=== PATIENT | female | born 1925 | race Caucasian/White ===

== ENCOUNTER 2017-01-27 06:22 | Inpatient (IN) | payer MEDICARE, BC ==
[~2017-01-27] VITALS: Ht 165.1 cm; Wt 70.8 kg
[~2017-01-27 06:22] MED LIST: ACET-73 PO; ASPI81TA31 PO; BIMA2.5D5 EACHEYE; BRIM5DRO2 EACHEYE; CALC-1116 PO; CITA20TA11 PO; CYAN250014 PO; DONE10TA44 PO; HYDR12.517 PO; LOPE-156 PO; MUPI22OI2 NS; POLY510P31 PO; SENN-167 PO; Tramadol Hcl PO; VALS1TAB2 PO; Valsartan PO
[2017-01-27] MEDS ORDERED: CYAN10009 PO (06:37)
[2017-01-27] MEDS ORDERED: AMIN30LI2 PO (06:37)
[2017-01-27] MEDS ORDERED: TIMO5SOL11 EACHEYE (06:37)
[2017-01-27] MEDS ORDERED: LATA2.5D7 EACHEYE (06:37)
[2017-01-27] MEDS ORDERED: CALC-25 PO (06:37)
[2017-01-27] MEDS ORDERED: CEFAZOLIN 1 G VIAL IM ONE (07:15)
[2017-01-27] MEDS ORDERED: TDAP DIPH,PERTUSS,TET VAC/PF 0.5 ML DISP.SYRIN IM ONE ×2 (07:15→07:29)
[2017-01-27] MEDS ORDERED: LIDOCAINE HCL 1% 20 ML VIAL IJ ONE (07:15)
[2017-01-27] MEDS ORDERED: CEFAZOLIN 1 G VIAL ONE (07:29)
[2017-01-27] MEDS ORDERED: LIDOCAINE HCL 1% 20 ML VIAL ONE (07:29)
[2017-01-27 08:34] LABS: BASOPHILS % (AUTO) 0.5 % (0.0-2.0); EOSINOPHILS # (AUTO) 0.5 K/uL (0.0-0.7); EOSINOPHILS % (AUTO) 5.4 % (0.0-7.0); HEMATOCRIT 37.2 % (37-47); HEMOGLOBIN 12.4 G/DL (12.0-16.0); LYMPHOCYTES % (AUTO) 10.3 % (20.5-51.5); MEAN CORPUSCULAR HEMOGLOBIN 31.9 UUG (27.0-31.0); MEAN CORPUSCULAR HGB CONC 34 g/dL (32.0-37.0); MEAN CORPUSCULAR VOLUME 95.3 FL (81.0-99.0); MONOCYTES # (AUTO) 0.6 K/UL (0.1-1.30); MONOCYTES % (AUTO) 6.5 % (0.0-11.0); NEUTROPHILS # (AUTO) 7.2 K/UL (1.8-8.9); NEUTROPHILS % (AUTO) 77.3 % (38.5-71.5); PLATELET COUNT (AUTO) 255 K/UL (150-450); WHITE BLOOD COUNT (AUTO) 9.3 K/UL (4.0-11.2)
[2017-01-27 08:50] LABS: CARBON DIOXIDE 27 mmol/L (21-32); CHLORIDE 105 mmol/L (98-107); GLUCOSE 110 mg/dL (74-106); POTASSIUM 3.4 mmol/L (3.5-5.1); UREA NITROGEN, BLOOD 21 mg/dL (7-18)
[2017-01-27 08:55] LABS: ALANINE AMINOTRANSFERASE 12 U/L (14-59); ALKALINE PHOSPHATASE 67 U/L (50-136); ASPARTATE AMINOTRANSFERASE 17 U/L (15-37); BILIRUBIN,DIRECT 0.1 mg/dL (0.0-0.2); BILIRUBIN,TOTAL 0.4 mg/dL (0.2-1.0); TOTAL PROTEIN, SERUM 7.3 g/dL (6.4-8.2)
--- NOTE | 2017-01-27 09:00 | NUR ---
PER MD ORDER, NO NEED TO CALL CODE SEPSIS. EVEN THOUGH LACTIC ACID IS ELEVATED.
[2017-01-27] MEDS ORDERED: LEVOFLOXACIN 500 MG/D5W 100ML PIGGYBACK IV ONE (09:15)
[2017-01-27] MEDS ORDERED: PIPERACILLIN SODIUM/TAZOBACTAM 3.375 G in IV DEXTROSE 5% 50 ML IV ONE (09:15)
[2017-01-27] MEDS ORDERED: IV NORMAL SALINE 1000 ML BAG IV ONE (09:15)
[2017-01-27] MEDS ORDERED: ENOXAPARIN SODIUM 80 MG/0.8 ML DISP.SYRIN SQ ONE ×2 (09:15→09:43)
[2017-01-27] MEDS ORDERED: LEVOFLOXACIN 500 MG/D5W 100 ML ONE (09:37)
[2017-01-27] MEDS ORDERED: PIPERACILLIN/TAZOBACTAM/D5W 50 ML IV ONE (09:37)
--- NOTE | 2017-01-27 09:59 | NUR ---
[facility]SA COLLECTED AND SENT TO LAB, BELONGING LIST COMPLETED.
--- NOTE | 2017-01-27 10:19 | NUR ---
PAGED VIP GROUP FOR 2ND TIME AWAITING CALL BACK.
[2017-01-27 11:00] VITALS: BP 115/57
--- NOTE | 2017-01-27 11:10 | NUR ---
ADMIT PT.FROM ER,PT.CONFUSED,WITH EPISODES OF AGITATION.
--- NOTE | 2017-01-27 11:15 | NUR ---
WAS PAGED FOR ADMITTING ORDERS.
--- NOTE | 2017-01-27 12:30 | NUR ---
PT.PULL IV OUT WAS BLEEDING FROM INSERTION SIDE,WAS CONSTANTLY GETTING OUT OFF BED,SITTER FOR PT.SAFETY PLACED.
--- NOTE | 2017-01-27 12:45 | NUR ---
PT.WAS SEEN BY WITH ADMITING ORDERS.
[2017-01-27] MEDS: IV 1/2NS 1000 ML 1,000 ML IV PRN (12:54)
[2017-01-27] MEDS ORDERED: CEFAZOLIN 1 G in PREMIXED 1 EACH IV SCH (14:00)
[2017-01-27] MEDS ORDERED: HYDR12.519 PO (14:54)
[2017-01-27] MEDS ORDERED: TRAM50TA2 PO (14:54)
[2017-01-27] MEDS ORDERED: VALS80TA2 GT (14:54)
--- NOTE | 2017-01-27 15:02 | NUR ---
MED.RECON.WAS NOT DONE WAS PAGED AGAIN.
[2017-01-27] MEDS ORDERED: Z GUARD REMEDY PASTE 57 GM TUBE TOP PRN (15:15)
[2017-01-27] MEDS: CEFAZOLIN 1 G in PREMIXED 1 EACH IV SCH ×2 (15:30→23:57)
[2017-01-27 16:00] VITALS: BP 113/51
--- NOTE | 2017-01-27 18:45 | NUR ---
NO CHANGES IN PT.CONDITION NO S/S OF ACUTE DISTRESS OR PAIN NOTED.SITTER 1:1 AT BEDSIDE
--- NOTE | 2017-01-27 19:20 | NUR ---
nsg: pt received in bed, awake but confused. no acute distress noted. denies discomfort. tele, SR with pvc's. lungs sound clear to auscultate. has bilateral lower ext edema. sitter at the bedside for safety. cont to monitor.
[2017-01-27] MEDS ORDERED: TIMO5DRO18 EACHEYE (19:33)
[2017-01-27] MEDS ORDERED: CYAN-10 IJ (19:41)
[2017-01-27] MEDS ORDERED: LOPERAMIDE HCL 2 MG CAPSULE PO PRN (19:45)
[2017-01-27] MEDS ORDERED: ACETAMINOPHEN ES 500 MG TABLET PO PRN (19:45)
[2017-01-27] MEDS ORDERED: SENNOSIDES 1 TABLET PO PRN (19:45)
[2017-01-27] MEDS ORDERED: POLYETHYLENE GLYCOL 3350 238 GM POWDER PO PRN (19:45)
[2017-01-27] MEDS ORDERED: CALC-555 PO (19:51)
[2017-01-27] MEDS ORDERED: MIRALAX 17 GM POWD.PACK PO PRN (20:00)
[2017-01-27] MEDS ORDERED: BRIM10DR6 EACHEYE (20:01)
[2017-01-27 20:03] VITALS: BP 134/60
[2017-01-27] MEDS: CALCIUM CARB/VITAMIN D 500MG-200UNITS TABLET PO SCH ×2 (21:00→21:11)
[2017-01-27] MEDS: LATANOPROST OPHT DROP 2.5 ML BOTTLE EACHEYE SCH (21:11)
[2017-01-27] MEDS: Z GUARD REMEDY PASTE 57 GM TUBE TOP SCH (21:12)
[2017-01-27] MEDS: ENOXAPARIN SODIUM 80 MG/0.8 ML DISP.SYRIN SQ SCH (21:12)
[2017-01-27 23:52] VITALS: BP 145/71
[2017-01-28 03:43] VITALS: BP 137/73
[2017-01-28] MEDS: IV 1/2NS 1000 ML 1,000 ML IV PRN ×2 (03:50→03:54)
--- NOTE | 2017-01-28 04:42 | NUR ---
nsg: pt has not slept. however, denies any discomfort.
--- NOTE | 2017-01-28 05:37 | NUR ---
nsg: all needs attended. kept clean and dry. tele, sr. cont to monitor.
[2017-01-28 06:45] LABS: BASOPHILS % (AUTO) 0.4 % (0.0-2.0); EOSINOPHILS # (AUTO) 0.4 K/uL (0.0-0.7); EOSINOPHILS % (AUTO) 4.8 % (0.0-7.0); HEMATOCRIT 37.5 % (37-47); HEMOGLOBIN 12.6 G/DL (12.0-16.0); LYMPHOCYTES # (AUTO) 1.4 K/UL (0.8-4.8); LYMPHOCYTES % (AUTO) 15.7 % (20.5-51.5); MEAN CORPUSCULAR HEMOGLOBIN 32.2 UUG (27.0-31.0); MEAN CORPUSCULAR HGB CONC 34 g/dL (32.0-37.0); MEAN CORPUSCULAR VOLUME 95.4 FL (81.0-99.0); MONOCYTES # (AUTO) 0.6 K/UL (0.1-1.30); NEUTROPHILS # (AUTO) 6.4 K/UL (1.8-8.9); NEUTROPHILS % (AUTO) 72.1 % (38.5-71.5); PLATELET COUNT (AUTO) 260 K/UL (150-450); RED BLOOD CELL COUNT(AUTO) 3.93 MIL/UL (4.2-5.4); WHITE BLOOD COUNT (AUTO) 8.8 K/UL (4.0-11.2)
[2017-01-28 07:12] LABS: ALANINE AMINOTRANSFERASE 11 U/L (14-59); ALKALINE PHOSPHATASE 60 U/L (50-136); ASPARTATE AMINOTRANSFERASE 20 U/L (15-37); BILIRUBIN,TOTAL 0.6 mg/dL (0.2-1.0); CARBON DIOXIDE 23 mmol/L (21-32); CHLORIDE 103 mmol/L (98-107); CREATININE 0.9 mg/dL (0.6-1.3); GLUCOSE 105 mg/dL (74-106); MAGNESIUM 1.5 mg/dL (1.8-2.4); PHOSPHOROUS 2.5 mg/dL (2.5-4.9); POTASSIUM 3.2 mmol/L (3.5-5.1); TOTAL PROTEIN, SERUM 6.7 g/dL (6.4-8.2); UREA NITROGEN, BLOOD 9 mg/dL (7-18)
[2017-01-28] MEDS: CEFAZOLIN 1 G in PREMIXED 1 EACH IV SCH ×2 (07:53→16:12)
[2017-01-28] MEDS: DONEPEZIL 10 MG TABLET PO SCH (07:54)
[2017-01-28] MEDS: HYDROCHLOROTHIAZIDE 12.5 MG CAPSULE PO SCH (07:54)
[2017-01-28] MEDS: CYANOCOBALAMIN 1,000 MCG TABLET PO SCH (07:54)
[2017-01-28] MEDS: CALCIUM CARB/VITAMIN D 500MG-200UNITS TABLET PO SCH ×2 (07:54→21:14)
[2017-01-28] MEDS: CITALOPRAM 20 MG TABLET PO SCH (07:54)
[2017-01-28] MEDS: VALSARTAN 80 MG TABLET PO SCH (07:54)
[2017-01-28] MEDS: ENOXAPARIN SODIUM 80 MG/0.8 ML DISP.SYRIN SQ SCH ×2 (07:57→21:16)
[2017-01-28] MEDS: TIMOLOL MALEATE 0.5% OPHT DROP 5 ML BOTTLE EACHEYE SCH ×2 (07:57→16:12)
[2017-01-28] MEDS: BRIMONIDINE 0.2% OPHT DROP 10 ML BOTTLE EACHEYE SCH ×2 (07:57→16:12)
[2017-01-28] MEDS: PROTEIN SUPPLEMENT (PROSTAT) 30 ML LIQUID PO SCH (07:58)
[2017-01-28] MEDS: Z GUARD REMEDY PASTE 57 GM TUBE TOP SCH ×2 (07:58→21:15)
[2017-01-28] MEDS ORDERED: ASPIRIN 81 MG TAB.CHEW PO SCH (09:00)
[2017-01-28] MEDS ORDERED: HOME MED MISCELLANEOUS PO SCH (09:00)
[2017-01-28] MEDS ORDERED: HOME MED MISCELLANEOUS EACHEYE SCH (09:00)
[2017-01-28] MEDS ORDERED: POTASSIUM CHLORIDE 20 MEQ TAB.PRT.SR PO ONE (09:15)
[2017-01-28] MEDS ORDERED: MAGNESIUM OXIDE 400 MG TABLET PO ONE (09:15)
[2017-01-28 11:31] VITALS: BP 168/85
[2017-01-28] MEDS: MAGNESIUM SULFATE/D5W 100 ML IV SCH ×2 (14:46→15:57)
[2017-01-28 15:32] VITALS: BP 170/78
[2017-01-28] MEDS ORDERED: BIMATOPROST 0.01% OPHT DROP 2.5 ML BOTTLE EACHEYE SCH (18:00)
--- NOTE | 2017-01-28 19:20 | NUR ---
Bedside reporting with GRADY Lopez. Patient on bed, wide awake. Sitter at bedside for safety. Pt denies any pain or discomforts at this time. Continue care as planned.
[2017-01-28 20:00] VITALS: BP 162/82
[2017-01-28] MEDS: TRAMADOL HCL 50 MG TABLET PO PRN (21:18)
[2017-01-28] MEDS: LATANOPROST OPHT DROP 2.5 ML BOTTLE EACHEYE SCH (21:25)
[2017-01-29] VITALS: BP 169/84
[2017-01-29 04:00] VITALS: BP 144/92
--- NOTE | 2017-01-29 05:41 | NUR ---
Restless, and somewhat agitated, medicated for pain with relief. Slept soundly. Sitter at bedside for safety. All needs attended and met. Continue care as planned.
[2017-01-29 06:42] LABS: CARBON DIOXIDE 25 mmol/L (21-32); CHLORIDE 96 mmol/L (98-107); CREATININE 0.8 mg/dL (0.6-1.3); GLUCOSE 123 mg/dL (74-106); POTASSIUM 3.3 mmol/L (3.5-5.1); UREA NITROGEN, BLOOD 6 mg/dL (7-18)
--- NOTE | 2017-01-29 07:03 | NUR ---
Bedside reporting with GRADY Lopez
[2017-01-29] MEDS: CEFAZOLIN 1 G in PREMIXED 1 EACH IV SCH ×5 (08:03→23:39)
[2017-01-29] MEDS: BRIMONIDINE 0.2% OPHT DROP 10 ML BOTTLE EACHEYE SCH ×2 (08:04→16:08)
[2017-01-29] MEDS: TIMOLOL MALEATE 0.5% OPHT DROP 5 ML BOTTLE EACHEYE SCH ×2 (08:04→16:08)
[2017-01-29] MEDS: PROTEIN SUPPLEMENT (PROSTAT) 30 ML LIQUID PO SCH (08:04)
[2017-01-29] MEDS: CITALOPRAM 20 MG TABLET PO SCH (08:06)
[2017-01-29] MEDS: CYANOCOBALAMIN 1,000 MCG TABLET PO SCH (08:06)
[2017-01-29] MEDS: CALCIUM CARB/VITAMIN D 500MG-200UNITS TABLET PO SCH ×2 (08:06→21:03)
[2017-01-29] MEDS: HYDROCHLOROTHIAZIDE 12.5 MG CAPSULE PO SCH (08:06)
[2017-01-29] MEDS: DONEPEZIL 10 MG TABLET PO SCH (08:06)
[2017-01-29] MEDS: Z GUARD REMEDY PASTE 57 GM TUBE TOP SCH ×2 (08:07→21:03)
[2017-01-29] MEDS: ENOXAPARIN SODIUM 80 MG/0.8 ML DISP.SYRIN SQ SCH ×2 (08:10→21:04)
[2017-01-29] MEDS: VALSARTAN 80 MG TABLET PO SCH (08:14)
[2017-01-29] MEDS: POTASSIUM CHLORIDE 50 ML IV SCH ×2 (10:10→11:35)
[2017-01-29] MEDS: AMLODIPINE 5 MG TABLET PO SCH (10:10)
[2017-01-29 12:33] VITALS: BP 153/83
[2017-01-29 15:29] VITALS: BP 148/76
[2017-01-29] MEDS ORDERED: WARFARIN SODIUM 4 MG TABLET PO SCH (17:00)
[2017-01-29 20:00] VITALS: BP 157/87
--- NOTE | 2017-01-29 20:00 | NUR ---
RECEIVED PATIENT AWAKE IN BED. ALERT TO SELF. PLEASANT WHEN APPROACHED. SITTER AT BEDSIDE. NO RESP. DISTRESS NOTED. BED ALARM ON. CALL LIGHT IN REACH. ALL NEEDS ATTENDED. WILL CONTINUE TO MONITOR .
[2017-01-29] MEDS: LATANOPROST OPHT DROP 2.5 ML BOTTLE EACHEYE SCH (21:03)
[2017-01-29] MEDS: NEOMY/BACITRAC/POLYMI OINT 28.35 GM TUBE TOP SCH (21:04)
[2017-01-29] MEDS: TRAMADOL HCL 50 MG TABLET PO PRN (21:05)
[2017-01-30 06:00] VITALS: BP 100/57
--- NOTE | 2017-01-30 06:25 | NUR ---
PATIENT ASLEEP IN BED. EASILY AROUSABLE. SLEPT WELL THROUGHOUT THE NIGHT. VSS. SITTER AT BEDSIDE FOR SAFETY. CALL LIGHT IN REACH. ALL NEEDS ATTENDED. WILL CONTINUE TO MONITOR .
[2017-01-30 07:48] LABS: CARBON DIOXIDE 26 mmol/L (21-32); CHLORIDE 97 mmol/L (98-107); CREATININE 0.8 mg/dL (0.6-1.3); GLUCOSE 94 mg/dL (74-106); PHOSPHOROUS 3.7 mg/dL (2.5-4.9); POTASSIUM 3.4 mmol/L (3.5-5.1); UREA NITROGEN, BLOOD 11 mg/dL (7-18); URIC ACID 3.6 mg/dL (2.6-6.0)
[2017-01-30 08:09] LABS: THYROID STIMULATING HORMONE 1.493 mIU/mL (0.358-3.740)
--- NOTE | 2017-01-30 08:30 | NUR ---
AWAKE FORGETFUL CONFUSED BUT COOPERATE AND ABLE TO FOLLOW SOME SIMPLE DIRECTION ON ASPIRATION AND FALL PRECAUTION CALL GOLDEN IN REACH AND BED ALARM ON AND SITTER 1:1 AT BEDSIDE FOR SAFETY NO SOB OR PAIN EAT BREAKFAST MOD AMT
[2017-01-30] MEDS: DONEPEZIL 10 MG TABLET PO SCH (08:42)
[2017-01-30] MEDS: CITALOPRAM 20 MG TABLET PO SCH (08:42)
[2017-01-30] MEDS: CYANOCOBALAMIN 1,000 MCG TABLET PO SCH (08:42)
[2017-01-30] MEDS: AMLODIPINE 5 MG TABLET PO SCH (08:42)
[2017-01-30] MEDS: HYDROCHLOROTHIAZIDE 12.5 MG CAPSULE PO SCH (08:42)
[2017-01-30] MEDS: CALCIUM CARB/VITAMIN D 500MG-200UNITS TABLET PO SCH ×2 (08:42→20:24)
[2017-01-30] MEDS: VALSARTAN 80 MG TABLET PO SCH (08:42)
[2017-01-30] MEDS: ENOXAPARIN SODIUM 80 MG/0.8 ML DISP.SYRIN SQ SCH ×2 (08:43→20:23)
[2017-01-30] MEDS: CEFAZOLIN 1 G in PREMIXED 1 EACH IV SCH ×2 (09:03→16:15)
[2017-01-30] MEDS: NEOMY/BACITRAC/POLYMI OINT 28.35 GM TUBE TOP SCH (09:04)
[2017-01-30] MEDS: TIMOLOL MALEATE 0.5% OPHT DROP 5 ML BOTTLE EACHEYE SCH ×2 (09:04→17:49)
[2017-01-30] MEDS: BRIMONIDINE 0.2% OPHT DROP 10 ML BOTTLE EACHEYE SCH ×2 (09:04→17:48)
[2017-01-30] MEDS: Z GUARD REMEDY PASTE 57 GM TUBE TOP SCH ×2 (09:04→20:24)
[2017-01-30] MEDS: PROTEIN SUPPLEMENT (PROSTAT) 30 ML LIQUID PO SCH (09:05)
--- NOTE | 2017-01-30 10:00 | NUR ---
DR SULLIVAN SEE PATIENT AND LAB RESULT THIS AM NEW ORDER IN CHART
[2017-01-30 11:17] VITALS: BP 123/73
--- NOTE | 2017-01-30 11:35 | NUR ---
KCL IVPB GIVEN ORDER RESTING WELL NO SOB OR PAIN
[2017-01-30] MEDS: POTASSIUM CHLORIDE 50 ML IV SCH ×2 (12:58→15:15)
--- NOTE | 2017-01-30 14:00 | NUR ---
PATIENT PULL IV OUT RESTART A NEW ONE AND RESUME IVPB KCL ORDER
[2017-01-30 15:21] VITALS: BP 98/54
[2017-01-30] MEDS ORDERED: WARFARIN SODIUM 4 MG TABLET PO SCH (17:00)
[2017-01-30] MEDS ORDERED: WARFARIN SODIUM 5 MG TABLET PO ONE (17:00)
--- NOTE | 2017-01-30 18:00 | NUR ---
stable hemodynamic status no acute distress safety measure provided sitter 1;1 at bedside and call arango in reach
[2017-01-30 19:34] VITALS: BP 109/55
--- NOTE | 2017-01-30 20:00 | NUR ---
PATIENT AWAKE IN BED WITH SITTER AT BEDSIDE. PATIENT IS ALERT TO SELF ONLY. CONFUSED AND DISORIENTED BUT PLEASANT WHEN APPROACHED. VSS DENIES PAIN OR DISCOMFORT. NO FACIAL GRIMACE NOTED. NO RESP. DISTRESS OR SOB NOTED. H/L INTACT AND PATENT, NOTED TO LEFT HAND. BED ALARM ON. CALL LIGHT IN REACH. ALL NEEDS ATTENDED. WILL CONTINUE TO MONITOR.
[2017-01-30] MEDS ORDERED: WARFARIN SODIUM 5 MG TABLET ONE (20:22)
[2017-01-30] MEDS: LATANOPROST OPHT DROP 2.5 ML BOTTLE EACHEYE SCH (20:24)
--- NOTE | 2017-01-30 21:45 | NUR ---
CHECKED PATIENTS BLADDER WITH SCANNER AND RECEIVED RETENTION OF 999cc. NOTIFIED SCHOOL SECRETARY AND CALLED OUT TO MD FOR FURTHER ORDERS. REDNESS NOTED TO BILATERAL GROIN AND BUTTOCKS. PICTURES TAKEN AND PLACED IN CHART. Z-GUARD APPLIED TO AFFECTED AREA AND REPOSITIONED TO SIDE FOR PRESSURE RELIEF. ALL NEEDS ATTENDED. WILL CONTINUE TO MONITOR.
--- NOTE | 2017-01-30 22:00 | NUR ---
RECEIVED ORDER FROM DR. EASTON FOR INSERTION OF YOUSIF CATHETER. RECEIVED OUTPUT OF 1300cc ONCE YOUSIF WAS INSERTED. URINE SENT TO LAB FOR ORDERED LABS. ALL NEEDS ATTENDED. WILL CONTINUE TO MONITOR.
[2017-01-30 22:32] LABS: *BILIRUBIN,URIN NEGATIVE (NEGATIVE); *BLOOD, URINE NEGATIVE (NEGATIVE); *CLARITY,URINE CLEAR (CLEAR); *COLOR,URINE YELLOW (YELLOW); *KETONES,URINE NEGATIVE (NEGATIVE); *PROTEIN,URINE NEGATIVE (NEGATIVE); *UROBILINOGEN,URINE 0.2 E.U./dl (NORMAL); LEUKOCYTE ESTERASE ,URINE NEGATIVE (NEGATIVE); NITRITE, URINE NEGATIVE (NEGATIVE); PH,URINE 6.5 (5.0-8.0); UGLUCOSE NEGATIVE (NEGATIVE)
[2017-01-30 22:41] LABS: BACTERIA,URINE FEW /HPF (NONE SEEN); RBC,URINE 0-3 /HPF (0-3); SQUAMOUS EPITHELIAL CELL,UR FEW /HPF (NONE SEEN); WBC,URINE 0-3 /HPF (0-3)
[2017-01-30 23:33] VITALS: BP 118/61
[2017-01-31] MEDS: CEFAZOLIN 1 G in PREMIXED 1 EACH IV SCH ×3 (00:05→14:08)
[2017-01-31 03:37] VITALS: BP 130/62
--- NOTE | 2017-01-31 06:11 | NUR ---
PATIENT ASLEEP IN BED. SITTER AT BEDSIDE. SLEPT WELL THROUGHOUT THE NIGHT. NO S/S OF PAIN OR DISCOMFORT. NO RESP. DISTRESS NOTED. F/C INTACT AND DRAINING WELL, CLEAR YELLOW URINE NOTED. BED ALARM ON. ALL NEEDS ATTENDED. VSS. WILL CONTINUE TO MONITOR.
[2017-01-31 07:47] LABS: BASOPHILS % (AUTO) 0.6 % (0.0-2.0); EOSINOPHILS # (AUTO) 0.8 K/uL (0.0-0.7); EOSINOPHILS % (AUTO) 12.3 % (0.0-7.0); HEMATOCRIT 37.8 % (37-47); LYMPHOCYTES # (AUTO) 1.1 K/UL (0.8-4.8); LYMPHOCYTES % (AUTO) 16.5 % (20.5-51.5); MEAN CORPUSCULAR HEMOGLOBIN 32.9 UUG (27.0-31.0); MEAN CORPUSCULAR HGB CONC 34 g/dL (32.0-37.0); MEAN CORPUSCULAR VOLUME 95.8 FL (81.0-99.0); MONOCYTES # (AUTO) 0.5 K/UL (0.1-1.30); MONOCYTES % (AUTO) 7.9 % (0.0-11.0); NEUTROPHILS # (AUTO) 4.5 K/UL (1.8-8.9); NEUTROPHILS % (AUTO) 62.7 % (38.5-71.5); PLATELET COUNT (AUTO) 254 K/UL (150-450); RED BLOOD CELL COUNT(AUTO) 3.94 MIL/UL (4.2-5.4); WHITE BLOOD COUNT (AUTO) 6.9 K/UL (4.0-11.2)
[2017-01-31 07:58] LABS: ALANINE AMINOTRANSFERASE 24 U/L (14-59); ALKALINE PHOSPHATASE 57 U/L (50-136); ASPARTATE AMINOTRANSFERASE 37 U/L (15-37); BILIRUBIN,TOTAL 0.3 mg/dL (0.2-1.0); CARBON DIOXIDE 29 mmol/L (21-32); CHLORIDE 100 mmol/L (98-107); CREATININE 0.9 mg/dL (0.6-1.3); GLUCOSE 87 mg/dL (74-106); MAGNESIUM 1.9 mg/dL (1.8-2.4); PHOSPHOROUS 3.6 mg/dL (2.5-4.9); POTASSIUM 3.5 mmol/L (3.5-5.1); TOTAL PROTEIN, SERUM 6.6 g/dL (6.4-8.2); UREA NITROGEN, BLOOD 12 mg/dL (7-18)
--- NOTE | 2017-01-31 08:00 | NUR ---
AWAKE COOPERATE NO PAIN OR SOB EAT BREAKFAST MOD AMT ON FALL PRECAUTION CALL GOLDEN IN REACH AND SITTER 1:1 AT BEDSIDE
[2017-01-31] MEDS: CYANOCOBALAMIN 1,000 MCG TABLET PO SCH (08:21)
[2017-01-31] MEDS: DONEPEZIL 10 MG TABLET PO SCH (08:21)
[2017-01-31] MEDS: CALCIUM CARB/VITAMIN D 500MG-200UNITS TABLET PO SCH (08:21)
[2017-01-31] MEDS: HYDROCHLOROTHIAZIDE 12.5 MG CAPSULE PO SCH (08:21)
[2017-01-31] MEDS: CITALOPRAM 20 MG TABLET PO SCH (08:21)
[2017-01-31] MEDS: VALSARTAN 80 MG TABLET PO SCH (08:22)
[2017-01-31] MEDS: AMLODIPINE 5 MG TABLET PO SCH (08:22)
[2017-01-31] MEDS: Z GUARD REMEDY PASTE 57 GM TUBE TOP SCH (08:22)
[2017-01-31] MEDS: NEOMY/BACITRAC/POLYMI OINT 28.35 GM TUBE TOP SCH (08:23)
[2017-01-31] MEDS: PROTEIN SUPPLEMENT (PROSTAT) 30 ML LIQUID PO SCH (08:32)
[2017-01-31] MEDS: TIMOLOL MALEATE 0.5% OPHT DROP 5 ML BOTTLE EACHEYE SCH ×2 (08:34→15:53)
[2017-01-31] MEDS: BRIMONIDINE 0.2% OPHT DROP 10 ML BOTTLE EACHEYE SCH ×2 (08:34→15:53)
[2017-01-31] MEDS: ENOXAPARIN SODIUM 80 MG/0.8 ML DISP.SYRIN SQ SCH ×2 (08:36→16:16)
--- NOTE | 2017-01-31 10:00 | NUR ---
DR SULLIVAN SEE PATIENT CONDITION INFORM NEW ORDER TO D/[facility]
[2017-01-31] MEDS ORDERED: AMLO5TAB2 PO (10:25)
[2017-01-31] MEDS ORDERED: WARF4TAB41 PO (10:25)
[2017-01-31] MEDS ORDERED: ENOX80DI SQ (10:25)
--- NOTE | 2017-01-31 11:00 | NUR ---
F/C WAS DISCONTINUE PRIOR D/C TO [facility] TODAY 350ML OUT ,WILL CHECK FOR VOIDING LATER DIAPER APPLY
[2017-01-31 11:10] VITALS: BP 101/49
--- NOTE | 2017-01-31 14:00 | NUR ---
family and [facility] was inform of patient d/c home today and nurse will f/u at home regarding coumadin and lovenox and wound care at left 4th and fifth toes TODAY LOVENOX WAS GIVEN FOR TONIGHT DOSE PRIOR D/C ALSO WITH COUMADIN THIS EVENING AND PEOPLE FROM [facility] WILL PICK HER UP AT 1630PM ,PATIENT ALREADY VOIDING AFTER F/C DISCONTINUE DIAPER WAS CHANGE SOME REDNESS AT [place] [facility] REM[facility]Y CREAM APPLY ORDER
--- NOTE | 2017-01-31 15:03 | NUR ---
The patient will be discharged today back to [facility] [ ; [address] [place] [address]] [address]. Gomez. Spoke to her son, Camilo [ ], who agreed with the discharge and asked [facility] to provide the transportation. Pamela from [facility] scheduled her pick-up time at 4:30 p.m. Also spoke with Esha from [facility] and she confirmed that they will re-admit the patient today. Ana M from [facility] [ ; ] stated that the patient has an open episode with them and they will continue with their care. She is aware that the patient will be getting Lovenox and Coumadin and Esha stated that they are allowed to provide the care for that. Her RN, Chas, is aware of her discharge plan.
[2017-01-31 15:54] VITALS: BP 103/50
--- NOTE | 2017-01-31 16:45 | NUR ---
D/C TO [facility] TODAY WITH HER BELONGING CONDITION STABLE ACCOMPANIES WITH JAMMER OPERATOR FROM [facility]
[2017-01-31] MEDS ORDERED: WARFARIN SODIUM 5 MG TABLET PO SCH (17:00)
== END 2017-01-31 16:50 | DRG 872 ==
LOC: ER 06:30 → TELE 10:36 → MED 01-29 10:12
PROVIDERS: ADMIT Internal Medicine; ATTEND Internal Medicine
PROC: 0HQNXZZ Repair Left Foot Skin, External Approach (ICD-10-PCS; principal; 2017-01-27)
DX: A41.9 Sepsis, unspecified organism (principal); E87.2 Acidosis; L03.116 Cellulitis of left lower limb; I82.413 Acute embolism and thrombosis of femoral vein, bilateral; H26.9 Unspecified cataract; F03.90 Unspecified dementia, unspecified severity, without behavioral disturbance, psychotic disturbance, mood disturbance, and anxiety; I25.10 Atherosclerotic heart disease of native coronary artery without angina pectoris; K59.00 Constipation, unspecified; I10 Essential (primary) hypertension; Z86.73 Personal history of transient ischemic attack (TIA), and cerebral infarction without residual deficits; R29.6 Repeated falls; I35.0 Nonrheumatic aortic (valve) stenosis; S93.105A Unspecified dislocation of left toe(s), initial encounter; W19.XXXA Unspecified fall, initial encounter; Z91.81 History of falling; Y93.9 Activity, unspecified; Y92.89 Other specified places as the place of occurrence of the external cause; Y99.9 Unspecified external cause status; S91.115A Laceration without foreign body of left lesser toe(s) without damage to nail, initial encounter; H40.9 Unspecified glaucoma
CPT/HCPCS: 36415; 70030-TC; 70450; 71010; 72125; 73660; 83605; 83735; 84100; 84300; 84443; 84550; 85025; 85610; 85730; 87040; 87086; 90715; 93005; 93307; 93880; A4217; A4663; J0690; J1650; J1956; J2543; J3475; J3480; J3490; J7030

== ENCOUNTER 2017-10-02 20:20 | Emergency (ER) | payer MEDICARE, BC ==
[~2017-10-02] VITALS: Ht 165.1 cm; Wt 81.6 kg
[~2017-10-02 20:20] MED LIST changes: +AMIN30LI2 PO; +AMLO5TAB2 PO; +BRIM10DR6 EACHEYE; -CALC-1116 PO; +CALC-555 PO; +CYAN10009 PO; -CYAN250014 PO; +ENOX80DI SQ; -HYDR12.517 PO; +LATA2.5D7 EACHEYE; +TIMO5DRO18 EACHEYE; +TRAM50TA2 PO; -Tramadol Hcl PO; -Valsartan PO; +WARF4TAB41 PO
--- NOTE | 2017-10-02 20:30 | NUR ---
at bedside for assessment and eval
[2017-10-02] MEDS ORDERED: IBUP-76 PO (20:37)
[2017-10-02] MEDS ORDERED: MICO133A TP (20:37)
[2017-10-02] MEDS ORDERED: CYAN10009 PO (20:37)
[2017-10-02] MEDS ORDERED: SENN-167 PO (20:37)
[2017-10-02] MEDS ORDERED: WARF2TAB57 PO ×2 (20:37)
[2017-10-02] MEDS ORDERED: AMLO2.5T2 PO (20:37)
[2017-10-02] MEDS ORDERED: TRAMADOL HCL 50 MG TABLET ONE (20:42)
[2017-10-02] MEDS ORDERED: TRAMADOL HCL 50 MG TABLET PO ONE (20:45)
[2017-10-02] MEDS ORDERED: ACETAMINOPHEN ES 500 MG TABLET ONE (20:53)
[2017-10-02 20:56] LABS: BASOPHILS # (AUTO) 0.1 K/uL (0.0-8.0); BASOPHILS % (AUTO) 1.1 % (0.0-2.0); EOSINOPHILS # (AUTO) 0.4 K/uL (0.0-0.7); EOSINOPHILS % (AUTO) 5.8 % (0.0-7.0); HEMATOCRIT 37.5 % (31.2-41.9); HEMOGLOBIN 12.9 g/dL (10.9-14.3); LYMPHOCYTES # (AUTO) 1.7 K/uL (20.0-40.0); LYMPHOCYTES % (AUTO) 26.7 % (20.5-51.5); MEAN CORPUSCULAR HGB CONC 35 g/dL (32.3-35.6); MEAN CORPUSCULAR VOLUME 95.7 fL (75.5-95.3); MONOCYTES # (AUTO) 0.6 K/uL (2.0-10.0); MONOCYTES % (AUTO) 9.7 % (0.0-11.0); NEUTROPHILS # (AUTO) 3.7 K/uL (1.8-8.9); NEUTROPHILS % (AUTO) 56.7 % (38.5-71.5); PLATELET COUNT (AUTO) 290 K/uL (179-408); RED BLOOD CELL COUNT(AUTO) 3.91 MIL/uL (3.63-4.92); WHITE BLOOD COUNT (AUTO) 6.5 K/uL (3.8-11.8)
--- NOTE | 2017-10-02 20:57 | NUR ---
architectural technologist at bedside. Patient being transfered to CT scan
[2017-10-02] MEDS ORDERED: ACETAMINOPHEN ES 500 MG TABLET PO ONE (21:00)
[2017-10-02 21:07] LABS: CARBON DIOXIDE 32 mmol/L (21-32); CHLORIDE 102 mmol/L (98-107); CREATININE 1.4 mg/dL (0.6-1.3); GLUCOSE 108 mg/dL (74-106); POTASSIUM 4.3 mmol/L (3.5-5.1); UREA NITROGEN, BLOOD 27 mg/dL (7-18)
[2017-10-02 21:12] LABS: ALANINE AMINOTRANSFERASE 23 U/L (14-59); ALKALINE PHOSPHATASE 89 U/L (50-136); ASPARTATE AMINOTRANSFERASE 15 U/L (15-37); BILIRUBIN,TOTAL 0.2 mg/dL (0.2-1.0); TOTAL PROTEIN, SERUM 7.4 g/dL (6.4-8.2)
--- NOTE | 2017-10-02 23:26 | NUR ---
Patient discharged to home in stable conditon accompanied by son, Camilo. Written and verbal after care instructions given. Patient/family verbalizes understanding of instructions. Call to [facility] to notify that patient will be returning to their facility.
[2017-10-02 23:28] VITALS: BP 132/64
== END 2017-10-02 23:31 | disposition home or self-care (01) ==
LOC: ER 20:20
DX: S30.0XXA Contusion of lower back and pelvis, initial encounter (principal); I10 Essential (primary) hypertension; M19.90 Unspecified osteoarthritis, unspecified site; Z86.73 Personal history of transient ischemic attack (TIA), and cerebral infarction without residual deficits; Z88.5 Allergy status to narcotic agent; W18.30XA Fall on same level, unspecified, initial encounter; Y92.89 Other specified places as the place of occurrence of the external cause; Y93.89 Activity, other specified; Y99.8 Other external cause status
CPT/HCPCS: 36415; 70450; 72125; 72131; 85025; 85610; A4663; A9150

== ENCOUNTER 2017-10-28 09:20 | Inpatient (IN) | payer MEDICARE, BC ==
[~2017-10-28] VITALS: Ht 160 cm; Wt 60.8 kg
[~2017-10-28 09:20] MED LIST changes: -ACET-73 PO; +AMLO2.5T2 PO; -AMLO5TAB2 PO; -BRIM10DR6 EACHEYE; -CITA20TA11 PO; +CITA20TA16 PO; -ENOX80DI SQ; +IBUP-76 PO; -LATA2.5D7 EACHEYE; +MICO133A TP; -MUPI22OI2 NS; -POLY510P31 PO; -TIMO5DRO18 EACHEYE; -TRAM50TA2 PO; +WARF2TAB57 PO; -WARF4TAB41 PO
[2017-10-28] MEDS ORDERED: ACET-2605 PO (10:09)
[2017-10-28 10:13] LABS: BASOPHILS % (AUTO) 0.3 % (0.0-2.0); HEMATOCRIT 25.2 % (31.2-41.9); HEMOGLOBIN 8.4 g/dL (10.9-14.3); LYMPHOCYTES # (AUTO) 1.1 K/uL (20.0-40.0); MEAN CORPUSCULAR HEMOGLOBIN 32.6 uug (24.7-32.8); MEAN CORPUSCULAR HGB CONC 33 g/dL (32.3-35.6); MONOCYTES # (AUTO) 0.5 K/uL (2.0-10.0); MONOCYTES % (AUTO) 3.6 % (0.0-11.0); NEUTROPHILS # (AUTO) 11.1 K/uL (1.8-8.9); NEUTROPHILS % (AUTO) 87.1 % (38.5-71.5); PLATELET COUNT (AUTO) 326 K/uL (179-408); RED BLOOD CELL COUNT(AUTO) 2.57 MIL/uL (3.63-4.92); WHITE BLOOD COUNT (AUTO) 12.8 K/uL (3.8-11.8)
[2017-10-28 10:19] LABS: CARBON DIOXIDE 23 mmol/L (21-32); CHLORIDE 106 mmol/L (98-107); CREATININE 1.4 mg/dL (0.6-1.3); GLUCOSE 154 mg/dL (74-106); POTASSIUM 4.1 mmol/L (3.5-5.1); UREA NITROGEN, BLOOD 72 mg/dL (7-18)
[2017-10-28 10:26] LABS: ALANINE AMINOTRANSFERASE 30 U/L (14-59); ALKALINE PHOSPHATASE 83 U/L (50-136); ASPARTATE AMINOTRANSFERASE 17 U/L (15-37); BILIRUBIN,TOTAL 0.3 mg/dL (0.2-1.0); CREATINE KINASE, TOTAL 36 U/L (26-192); TOTAL PROTEIN, SERUM 6.6 g/dL (6.4-8.2)
[2017-10-28 10:47] LABS: *BILIRUBIN,URIN NEGATIVE (NEGATIVE); *BLOOD, URINE NEGATIVE (NEGATIVE); *CLARITY,URINE CLEAR (CLEAR); *COLOR,URINE YELLOW (YELLOW); *KETONES,URINE NEGATIVE (NEGATIVE); *PROTEIN,URINE NEGATIVE (NEGATIVE); *UROBILINOGEN,URINE 0.2 E.U./dl (NORMAL); LEUKOCYTE ESTERASE ,URINE NEGATIVE (NEGATIVE); NITRITE, URINE NEGATIVE (NEGATIVE); UGLUCOSE NEGATIVE (NEGATIVE)
[2017-10-28 10:56] LABS: BACTERIA,URINE FEW /HPF (NONE SEEN); RBC,URINE 0-3 /HPF (0-3); SQUAMOUS EPITHELIAL CELL,UR FEW /HPF (NONE SEEN); WBC,URINE 0-3 /HPF (0-3)
[2017-10-28] MEDS ORDERED: IV NORMAL SALINE 500 ML IV ONE (11:30)
[2017-10-28] MEDS ORDERED: PANTOPRAZOLE SODIUM IV 40 MG in IV DEXTROSE 5% 100 ML IV ONE (12:00)
[2017-10-28 12:02] LABS: *OCCULT BLOOD STOOL POSITIVE (NEGATIVE)
--- NOTE | 2017-10-28 12:02 | NUR ---
CALLED DR. DIETZ FOR GI CONSULT AND LEFT A MESSAGE
[2017-10-28] MEDS ORDERED: PANTOPRAZOLE SODIUM 40 MG VIAL ONE (12:05)
--- NOTE | 2017-10-28 13:10 | NUR ---
CALLED DR. CUENCA FOR SECOND TIME TO ADMIT THE PT. LEFT A MESSAGE WITH EXCHANGE.
--- NOTE | 2017-10-28 14:00 | NUR ---
PERINEAL HYGIENE PROVIDED FOR PT. PT SON TOOK THE PT RING HOME.
--- NOTE | 2017-10-28 14:05 | NUR ---
PT TRANSFERED TO FLOOR IN STABLE CONDITION. PT BAKING FACTORY WORKER AT BEDSIDE THE WHOLE ER STAY. PT RESTING, NO SIGN OF DISTRESS, ALTHOUGH AROUSABLE. AT THE TIME OF MOVING THE PT IN BED, PT CO PAIN, BUT WAS NOT ABLE TO SAY WHERE IT HURTS.
[2017-10-28 14:29] VITALS: BP 126/67
--- NOTE | 2017-10-28 14:30 | NUR ---
patient admitted to med surg unit. patient stable upon arrival, appears drowsy but responds to voice and light touch. patient oriented to self. no s/s acute distress. VSS. son at bedside and able to answer most questions for the patient.
[2017-10-28 15:36] VITALS: BP 123/52
[2017-10-28 17:19] LABS: HEMOGLOBIN 8.5 g/dL (10.9-14.3)
--- NOTE | 2017-10-28 18:48 | NUR ---
patient stable this shift, asleep most of the shift, easily arousable with name and light touch. IV fluids running well. patient NPO at this time with all home meds on hold. GI consult to be done tomorrow.
--- NOTE | 2017-10-28 19:30 | NUR ---
PT RECEIVED IN BED, ASLEEP. WAKES TO NAME. A/OX1. NON-VERBAL. UNABLE TO MAKE NEEDS KNOWN. V/S STABLE. IN NO ACUTE DISTRESS. NO S/S PAIN NOTED. IVF INFUSING. ON RA, TOLERATING WELL. 80 SINUS RHYTHM ON THE TELE MONITOR. HOB ELEVATED. SAFETY MEASURES IMPLEMENTED. BED ALARM SET. CALL LIGHT WITHIN REACH.
[2017-10-28 20:00] VITALS: BP 120/49
[2017-10-28 22:20] LABS: HEMATOCRIT 21.1 % (31.2-41.9)
[2017-10-28 22:22] LABS: HEMOGLOBIN 7.2 g/dL (10.9-14.3)
[2017-10-29] VITALS (9 sets, daily range): BP systolic 110–134; BP diastolic 39–81
[2017-10-29] MEDS: IV D5/ 0.9% NACL 1,000 ML IV PRN ×2 (05:49→18:46)
--- NOTE | 2017-10-29 06:05 | NUR ---
END OF SHIFT NOTES. PT SLEPT WELL THROUGHOUT SHIFT. CONT TO BE NPO FOR SCHEDULED EGD. SINUS RHYTHM ON THE TELE MONITOR. 1L IVF INFUSED, UNABLE TO COMPLETE IV SPREADSHEET, PREVIOUS NURSE DID NOT SCAN. IVF INFUSING. TOLERATED 2LNC WELL. AFEBRILE. HOB REMAINS ELEVATED. ALL NEEDS ATTENDED. BED ALARM SET. CALL LIGHT WITHIN REACH.
[2017-10-29 06:34] LABS: ALANINE AMINOTRANSFERASE 21 U/L (14-59); ALKALINE PHOSPHATASE 66 U/L (50-136); ASPARTATE AMINOTRANSFERASE 14 U/L (15-37); BILIRUBIN,DIRECT < 0.1 mg/dL (0.0-0.2); BILIRUBIN,TOTAL 0.1 mg/dL (0.2-1.0); TOTAL PROTEIN, SERUM 5.8 g/dL (6.4-8.2)
[2017-10-29 06:38] LABS: MEAN CORPUSCULAR HGB CONC 34 g/dL (32.3-35.6); WHITE BLOOD COUNT (AUTO) 9.4 K/uL (3.8-11.8)
[2017-10-29 06:39] LABS: BASOPHILS % (AUTO) 0.3 % (0.0-2.0); EOSINOPHILS % (AUTO) 0.1 % (0.0-7.0); LYMPHOCYTES # (AUTO) 1.2 K/uL (20.0-40.0); LYMPHOCYTES % (AUTO) 12.3 % (20.5-51.5); MEAN CORPUSCULAR HEMOGLOBIN 33.3 uug (24.7-32.8); MEAN CORPUSCULAR VOLUME 97.2 fL (75.5-95.3); MONOCYTES # (AUTO) 0.7 K/uL (2.0-10.0); MONOCYTES % (AUTO) 7.9 % (0.0-11.0); NEUTROPHILS # (AUTO) 7.5 K/uL (1.8-8.9); NEUTROPHILS % (AUTO) 79.4 % (38.5-71.5); PLATELET COUNT (AUTO) 249 K/uL (179-408)
[2017-10-29 06:50] LABS: HEMOGLOBIN 6.8 g/dL (10.9-14.3); RED BLOOD CELL COUNT(AUTO) 2.05 MIL/uL (3.63-4.92)
[2017-10-29 07:25] LABS: IRON, SERUM 35 ug/dL (50-175)
[2017-10-29] MEDS ORDERED: PANTOPRAZOLE SODIUM 40 MG VIAL IV SCH ×3 (09:00→21:00)
[2017-10-29 10:02] LABS: BAND % (MANUAL) 3 % (0-10); EOSINOPHILS % (MANUAL) 1 % (0-8); LYMPHOCYTES % (MANUAL) 11 % (20-40); MONOCYTES % (MANUAL) 6 % (2-10); NEUTROPHILS % (MANUAL) 79 % (42-75)
--- NOTE | 2017-10-29 11:00 | NUR ---
PT HGB 6.8, SKYLER AZAR ORDERED 1 UNIT PRBC STAT, BLOOD TRANSFUSION CONSENT OBTAINED VIA TELEPHONE FROM [facility] (SON), TYPE AND SCREEN ORDERED. CONSENT FOR EGD ALSO OBTAINED VIA TELEPHONE FROM [facility] ([facility]), SY RASMUSSEN WITNESSED TELEPHONE CONSENT FOR BOTH BLOOD TRANSFUSION AND EGD
--- NOTE | 2017-10-29 11:28 | NUR ---
TORB OF 1 UNIT FFP TO INFUSE AND ADMINISTER BEFORE PRBC STAT PER SKYLER AZAR. ORDERS NOTED AND CARRIED OUT.
[2017-10-29] MEDS: MUPIROCIN 2% OINT 22 GM TUBE NS SCH ×2 (11:55→20:51)
--- NOTE | 2017-10-29 13:57 | NUR ---
STARTED ON FFP 1 UNIT, NO ADVERSE REACTIONS DURING FIRST FEW MINS OF INFUSION VS BP 134/42 TEMP 98.5 RR 18 O2 SAT 95%, TAKEN DOWN TO GI LAB FOR EGD WHILE FFP STILL INFUSING VIA BED.
--- NOTE | 2017-10-29 16:40 | NUR ---
RECEIVED PATIENT FROM GI LAB, S/P EGD, IN STABLE CONDITION, BLOOD TRANSFUSION OF PRBC 1 UNIT STARTED IN GI LAB AND STILL INFUSING, NO S/S OF ADVERSE REACTION NOTED. VS BP 134/50 KS 77 RR 16 O2 SAT 99 ON O2 2LPM VIA NC. WILL CONTINUE TO MONITOR.
--- NOTE | 2017-10-29 16:58 | NUR ---
SEEN AND EVALUATED BY SPEECH THERAPIST. NNO.
[2017-10-29] MEDS ORDERED: PANTOPRAZOLE SODIUM 40 MG TABLET.DR PO SCH (17:00)
[2017-10-29] MEDS: PANTOPRAZOLE SODIUM 40 MG TABLET.DR PO SCH (17:06)
[2017-10-29] MEDS: SUCRALFATE 1 G TABLET PO SCH (17:06)
[2017-10-29] MEDS ORDERED: LIDOCAINE HCL 2% 20 ML VIAL MC ONE (17:24)
[2017-10-29] MEDS ORDERED: PROPOFOL 200 MG/20 ML BOTTLE IV ONE (17:24)
--- NOTE | 2017-10-29 18:47 | NUR ---
blood transfusion started at ended at 1830, no adverse reactions noted, VS after completion BP 119/52 Temp 97.4 UT 83 RR 18 O2 sat 95 RM AIR. Pt in stable condition. will continue to monitor closely.
[2017-10-30] VITALS: BP 90/39
[2017-10-30 04:00] VITALS: BP 138/52
--- NOTE | 2017-10-30 04:04 | NUR ---
Pt sleeping quietly, awakens to voice, reoriented pt to time, person and situation. Bed exit alarm is still activated, bed in lowest position, call light within reach. Respirations even, unlabored, no physiologic signs of pain/discomfort noted. No bleeding noted, no stools thus far. Continuing to monitor pt for comfort/safety.
[2017-10-30] MEDS: SUCRALFATE 1 G TABLET PO SCH ×3 (06:01→16:53)
[2017-10-30] MEDS: PANTOPRAZOLE SODIUM 40 MG TABLET.DR PO SCH ×2 (06:02→16:53)
[2017-10-30 06:56] LABS: BASOPHILS # (AUTO) 0.1 K/uL (0.0-8.0); BASOPHILS % (AUTO) 0.7 % (0.0-2.0); EOSINOPHILS # (AUTO) 0.1 K/uL (0.0-0.7); EOSINOPHILS % (AUTO) 1.4 % (0.0-7.0); LYMPHOCYTES # (AUTO) 1.4 K/uL (20.0-40.0); LYMPHOCYTES % (AUTO) 17.9 % (20.5-51.5); MEAN CORPUSCULAR HEMOGLOBIN 32.4 uug (24.7-32.8); MEAN CORPUSCULAR HGB CONC 34 g/dL (32.3-35.6); MEAN CORPUSCULAR VOLUME 94.1 fL (75.5-95.3); MONOCYTES # (AUTO) 0.5 K/uL (2.0-10.0); MONOCYTES % (AUTO) 6.8 % (0.0-11.0); NEUTROPHILS # (AUTO) 5.5 K/uL (1.8-8.9); NEUTROPHILS % (AUTO) 73.2 % (38.5-71.5); PLATELET COUNT (AUTO) 220 K/uL (179-408); WHITE BLOOD COUNT (AUTO) 7.6 K/uL (3.8-11.8)
[2017-10-30 06:59] LABS: HEMOGLOBIN 7.2 g/dL (10.9-14.3); RED BLOOD CELL COUNT(AUTO) 2.23 MIL/uL (3.63-4.92)
[2017-10-30 07:14] LABS: IRON, SERUM 230 ug/dL (50-175)
--- NOTE | 2017-10-30 07:20 | NUR ---
Received pt in bed awake and appears confused, no apparent s/s of pain, distress, discomfort or SOB. IV hydration at this time running, noted IV site is wrapped. Bed at lowest position for safety and call light within reach for assistance
[2017-10-30 07:39] LABS: ALANINE AMINOTRANSFERASE 23 U/L (14-59); ALKALINE PHOSPHATASE 75 U/L (50-136); ASPARTATE AMINOTRANSFERASE 20 U/L (15-37); BILIRUBIN,TOTAL 0.4 mg/dL (0.2-1.0); CARBON DIOXIDE 26 mmol/L (21-32); CHLORIDE 114 mmol/L (98-107); FERRITIN 35 ng/mL (8-252); GLUCOSE 118 mg/dL (74-106); PHOSPHOROUS 2.5 mg/dL (2.5-4.9); POTASSIUM 3.3 mmol/L (3.5-5.1); TOTAL PROTEIN, SERUM 5.8 g/dL (6.4-8.2); UREA NITROGEN, BLOOD 33 mg/dL (7-18)
[2017-10-30] MEDS: MUPIROCIN 2% OINT 22 GM TUBE NS SCH ×2 (08:49→20:53)
--- NOTE | 2017-10-30 10:36 | NUR ---
Patient removed her IV, noted blood on her gown and her right hand. Patient was cleaned up, both has washed and dried. Chnaged patient into a clean gown.
--- NOTE | 2017-10-30 10:59 | NUR ---
New 22g IV line placed. Patient tolerated procedure well, line is patent, flushes well and blood return noted
[2017-10-30 11:59] VITALS: BP 123/49
[2017-10-30] MEDS ORDERED: IV 1/2NS 1000 ML 1,000 ML IV PRN (12:39)
[2017-10-30] MEDS ORDERED: SOD FERRIC GLUC COMPLX/SUCROSE 125 MG in IV NORMAL SALINE 100 ML IV SCH (14:00)
[2017-10-30 16:01] VITALS: BP 120/56
[2017-10-30] MEDS ORDERED: POTASSIUM CHLORIDE 20 MEQ TAB.PRT.SR PO ONE (18:00)
--- NOTE | 2017-10-30 19:30 | NUR ---
ALERT, BUT CONFUSED AND DISORIENTED. NO S/SX OF ANY PAIN OR SOB. NOT IN ACUTE DISTRESS. IV SITE ON RFA REMAINS INTACT AND PATENT AT THIS TIME. SR ON TELE 76/MIN. BED IN LOW AND LOCK POSITION, BED ALARM ON. SAFETY MEASURE INITIATED AND CALL GOLDEN WITHIN REACH.
[2017-10-30 21:10] VITALS: BP 132/55
[2017-10-30 22:21] LABS: *BILIRUBIN,URIN NEGATIVE (NEGATIVE); *BLOOD, URINE NEGATIVE (NEGATIVE); *CLARITY,URINE CLEAR (CLEAR); *COLOR,URINE YELLOW (YELLOW); *KETONES,URINE NEGATIVE (NEGATIVE); *PROTEIN,URINE NEGATIVE (NEGATIVE); *UROBILINOGEN,URINE 0.2 E.U./dl (NORMAL); LEUKOCYTE ESTERASE ,URINE NEGATIVE (NEGATIVE); NITRITE, URINE NEGATIVE (NEGATIVE); UGLUCOSE NEGATIVE (NEGATIVE)
[2017-10-30 22:31] LABS: BACTERIA,URINE NONE SEEN /HPF (NONE SEEN); RBC,URINE 0-3 /HPF (0-3); SQUAMOUS EPITHELIAL CELL,UR FEW /HPF (NONE SEEN); WBC,URINE 0-3 /HPF (0-3)
[2017-10-30 22:42] LABS: *CREATININE,URINE 77.6 mg/dL (30-125); *URINE TOTAL PROTEIN RANDOM 18.5 mg/dL (<150/24HR)
[2017-10-31] VITALS: BP 140/57
--- NOTE | 2017-10-31 | NUR ---
AWAKE, ALERT TO SELF ONLY. MAINLY CONFUSED AND DISORIENTED. NO S/SX OF PAIN OR SOB OBSERVED. O2 SAT AT 92%. SR ON TELE 68/MIN. BED ON LOW AND LOCK POSITION. BED ALARM ON. SAFETY MEASURE MAINTAINED AND CALL GOLDEN WITHIN REACH.
[2017-10-31 05:19] VITALS: BP 137/53
--- NOTE | 2017-10-31 06:02 | NUR ---
AWAKE, ALERT TO SELF ONLY. MAINLY CONFUSED AND DISORIENTED. NO S/SX OF PAIN OR SOB OBSERVED. O2 SAT AT 92% ON RA. SR ON TELE 68/MIN. BED MAINTAINED ON LOW AND LOCK POSITION. BED ALARM ON. SAFETY MEASURE MAINTAINED AND CALL GOLDEN WITHIN REACH. OBTAINED URINE SAMPLE AT 2130 10/30/17 AND SENT TO LAB.
[2017-10-31 06:15] LABS: BASOPHILS # (AUTO) 0.1 K/uL (0.0-8.0); BASOPHILS % (AUTO) 0.7 % (0.0-2.0); EOSINOPHILS # (AUTO) 0.3 K/uL (0.0-0.7); EOSINOPHILS % (AUTO) 4.4 % (0.0-7.0); HEMATOCRIT 23.6 % (31.2-41.9); LYMPHOCYTES # (AUTO) 1.7 K/uL (20.0-40.0); LYMPHOCYTES % (AUTO) 22.3 % (20.5-51.5); MEAN CORPUSCULAR HEMOGLOBIN 32.4 uug (24.7-32.8); MEAN CORPUSCULAR HGB CONC 34 g/dL (32.3-35.6); MEAN CORPUSCULAR VOLUME 95.3 fL (75.5-95.3); MONOCYTES # (AUTO) 0.6 K/uL (2.0-10.0); MONOCYTES % (AUTO) 7.3 % (0.0-11.0); NEUTROPHILS # (AUTO) 5.1 K/uL (1.8-8.9); NEUTROPHILS % (AUTO) 65.3 % (38.5-71.5); PLATELET COUNT (AUTO) 241 K/uL (179-408); WHITE BLOOD COUNT (AUTO) 7.8 K/uL (3.8-11.8)
[2017-10-31 06:17] LABS: RED BLOOD CELL COUNT(AUTO) 2.48 MIL/uL (3.63-4.92)
[2017-10-31] MEDS: SUCRALFATE 1 G TABLET PO SCH ×3 (06:30→16:15)
[2017-10-31] MEDS: PANTOPRAZOLE SODIUM 40 MG TABLET.DR PO SCH ×2 (06:30→16:14)
[2017-10-31 06:32] LABS: ALANINE AMINOTRANSFERASE 21 U/L (14-59); ALKALINE PHOSPHATASE 79 U/L (50-136); ASPARTATE AMINOTRANSFERASE 19 U/L (15-37); BILIRUBIN,TOTAL 0.4 mg/dL (0.2-1.0); CARBON DIOXIDE 24 mmol/L (21-32); CHLORIDE 110 mmol/L (98-107); CREATININE 0.8 mg/dL (0.6-1.3); GLUCOSE 97 mg/dL (74-106); MAGNESIUM 1.7 mg/dL (1.8-2.4); PHOSPHOROUS 2.4 mg/dL (2.5-4.9); TOTAL PROTEIN, SERUM 5.9 g/dL (6.4-8.2); UREA NITROGEN, BLOOD 22 mg/dL (7-18)
--- NOTE | 2017-10-31 07:00 | NUR ---
Critical lab value for Potassium = 2.8. Informed day shift nurse Mady.
[2017-10-31 07:01] LABS: POTASSIUM 2.8 mmol/L (3.5-5.1)
--- NOTE | 2017-10-31 07:15 | NUR ---
CRITICAL LAB VALUE K:2.8 ENDORSED BY MIRIAM RASMUSSEN, CALLED AND PAGED DR. CARREON, AWAITING CALL BACK
--- NOTE | 2017-10-31 07:45 | NUR ---
DR. CARREON CALLED BACK WITH ORDERS FOR KCL 40 MEQ IV X 1, ORDERS NOTED AND CARRIED OUT. WILL CONTINUE TO MONITOR.
[2017-10-31] MEDS ORDERED: POTASSIUM CHLORIDE 50 ML IV SCH (08:30)
[2017-10-31] MEDS: MUPIROCIN 2% OINT 22 GM TUBE NS SCH (08:49)
[2017-10-31] MEDS: POTASSIUM CHLORIDE 10 MEQ in IV DEXTROSE 5% 50 ML IV SCH ×2 (10:01→11:44)
[2017-10-31 11:22] VITALS: BP 141/57
[2017-10-31] MEDS ORDERED: VALSARTAN 80 MG TABLET PO SCH (12:00)
[2017-10-31] MEDS ORDERED: PANT40TA2 PO (12:26)
[2017-10-31] MEDS: POTASSIUM PHOSPHATE MM 5 MMOL in IV DEXTROSE 5% 100 ML IV SCH ×3 (12:28→16:49)
[2017-10-31 15:29] VITALS: BP 144/64
[2017-10-31] MEDS ORDERED: MAGNESIUM OXIDE 400 MG TABLET PO ONE (15:30)
--- NOTE | 2017-10-31 17:35 | NUR ---
left facility in stable condition, was picked up by [facility] employees. discharged with no acute distress noted. discharge papers and instructions given to patient. iv access removed well tolerated. escorted patient out of facility safely.
[2017-10-31] MEDS ORDERED: MAGNESIUM SULFATE/D5W 100 ML IV SCH (20:00)
== END 2017-10-31 17:25 | DRG 377 ==
LOC: ER 09:20 → TELE 14:01
PROVIDERS: ADMIT Internal Medicine; ATTEND Internal Medicine
PROC: 30233K1 Transfusion of Nonautologous Frozen Plasma into Peripheral Vein, Percutaneous Approach (ICD-10-PCS; 2017-10-29)
PROC: 30233N1 Transfusion of Nonautologous Red Blood Cells into Peripheral Vein, Percutaneous Approach (ICD-10-PCS; 2017-10-29)
PROC: 0DB58ZX Excision of Esophagus, Via Natural or Artificial Opening Endoscopic, Diagnostic (ICD-10-PCS; principal; 2017-10-29 15:26)
DX: K29.01 Acute gastritis with bleeding (principal); N17.0 Acute kidney failure with tubular necrosis; E43 Unspecified severe protein-calorie malnutrition; G92 Toxic encephalopathy; E87.0 Hyperosmolality and hypernatremia; E86.0 Dehydration; D62 Acute posthemorrhagic anemia; D53.9 Nutritional anemia, unspecified; F03.90 Unspecified dementia, unspecified severity, without behavioral disturbance, psychotic disturbance, mood disturbance, and anxiety; K22.10 Ulcer of esophagus without bleeding; I35.0 Nonrheumatic aortic (valve) stenosis; K44.9 Diaphragmatic hernia without obstruction or gangrene; Z79.82 Long term (current) use of aspirin; Z86.73 Personal history of transient ischemic attack (TIA), and cerebral infarction without residual deficits; Z86.718 Personal history of other venous thrombosis and embolism; H40.9 Unspecified glaucoma; H26.9 Unspecified cataract; M19.90 Unspecified osteoarthritis, unspecified site; Z79.01 Long term (current) use of anticoagulants; Z79.899 Other long term (current) drug therapy; Z68.23 Body mass index [BMI] 23.0-23.9, adult; I12.9 Hypertensive chronic kidney disease with stage 1 through stage 4 chronic kidney disease, or unspecified chronic kidney disease; N18.9 Chronic kidney disease, unspecified; Z79.1 Long term (current) use of non-steroidal anti-inflammatories (NSAID); Z88.6 Allergy status to analgesic agent; Z22.322 Carrier or suspected carrier of Methicillin resistant Staphylococcus aureus; R01.1 Cardiac murmur, unspecified; R55 Syncope and collapse; E87.6 Hypokalemia
CPT/HCPCS: 36415; 70030-TC; 70450; 71045; 83550; 83735; 84100; 84156; 84300; 85018; 85025; 85610; 85730; 86850; 86900; 86901; 86920; 92523; 93005; 93307; 97165; A4217; A4663; C1758; C9113; J2916; J3480; J3490; J7040; J7042; J7060; P9016-BL; P9017-BL; P9021